=== PATIENT | female | born 1940 | race Caucasian/White ===

== ENCOUNTER → 2016-05-19 08:21 | Outpatient (CLI) | payer MEDICARE ==
[2014-03-29 09:49] VITALS: BMI 28.3
[~2016-05-19 08:21] MED LIST: B&O SUPP1 SUPP.REC; KLONOPIN1 MG PO; NEXIUM40 MG PO; ULTRAM50 MG PO
[2016-05-19 09:27] LABS: ALBUMIN 3.9 g/dL (3.4-5.0); BILIRUBIN - DIRECT 0.15 mg/dL (0.00-0.30); BILIRUBIN - INDIRECT 0.47 mg/dL (0.00-1.00); BILIRUBIN - TOTAL 0.62 mg/dL (0.2-1.3); PROTEIN - SERUM 7.4 g/dL (6.4-8.2)
== END | disposition home or self-care (01) ==
LOC: D.US 08:21
PROVIDERS: Internal Medicine Gastroenterology
DX: K76.0 Fatty (change of) liver, not elsewhere classified (principal)

== ENCOUNTER → 2016-11-18 08:53 | Outpatient (CLI) | payer MEDICARE ==
[2014-03-29 09:49] VITALS: BMI 28.3
[2016-11-18 10:30] LABS: ALBUMIN 3.6 g/dL (3.4-5.0); BILIRUBIN - INDIRECT 0.26 mg/dL (0.00-1.00); BILIRUBIN - TOTAL 0.29 mg/dL (0.2-1.3); PROTEIN - SERUM 7.3 g/dL (6.4-8.2)
[2016-11-18 10:31] LABS: BILIRUBIN - DIRECT 0.03 mg/dL (0.00-0.30)
== END | disposition home or self-care (01) ==
LOC: D.US 08:53
PROVIDERS: Internal Medicine Gastroenterology
DX: K76.0 Fatty (change of) liver, not elsewhere classified (principal)

== ENCOUNTER → 2017-05-19 08:02 | Outpatient (CLI) | payer MEDICARE ==
[2014-03-29 09:49] VITALS: BMI 28.3
[2017-05-19 09:24] LABS: ALBUMIN 3.9 g/dL (3.4-5.0); BILIRUBIN - DIRECT 0.14 mg/dL (0.00-0.30); BILIRUBIN - INDIRECT 0.56 mg/dL (0.00-1.00); BILIRUBIN - TOTAL 0.7 mg/dL (0.2-1.3)
== END | disposition home or self-care (01) ==
LOC: D.US 08:02
PROVIDERS: Internal Medicine Gastroenterology
DX: K76.0 Fatty (change of) liver, not elsewhere classified (principal)

== ENCOUNTER → 2017-11-19 08:26 | Outpatient (CLI) | payer MEDICARE ==
[2014-03-29 09:49] VITALS: BMI 28.3
[2017-11-19 09:01] LABS: ALBUMIN 3.5 g/dL (3.4-5.0); BILIRUBIN - DIRECT 0.14 mg/dL (0.00-0.30); BILIRUBIN - INDIRECT 0.5 mg/dL (0.00-1.00); BILIRUBIN - TOTAL 0.64 mg/dL (0.2-1.3); PROTEIN - SERUM 7.5 g/dL (6.4-8.2)
== END | disposition home or self-care (01) ==
LOC: D.LAB 08:26
PROVIDERS: Internal Medicine Gastroenterology
DX: K76.0 Fatty (change of) liver, not elsewhere classified (principal)

== ENCOUNTER → 2018-01-11 10:28 | Outpatient (CLI) | payer MEDICARE ==
[2014-03-29 09:49] VITALS: BMI 28.3
== END | disposition home or self-care (01) ==
LOC: D.MRI 10:28
DX: M54.5 Low back pain (principal)

== ENCOUNTER → 2018-02-17 07:14 | Outpatient (CLI) | payer MEDICARE ==
[2014-03-29 09:49] VITALS: BMI 28.3
== END | disposition home or self-care (01) ==
LOC: D.MRI 07:14
DX: M51.24 Other intervertebral disc displacement, thoracic region (principal)

== ENCOUNTER 2018-11-23 10:42 | Outpatient (CLI) | payer MEDICARE, MEDICAID ==
[~2018-11-23] VITALS: Ht 165.1 cm; Wt 74.5 kg
--- NOTE | ~2018-11-23 | HEMODYNAMI ---
PATIENT:BRENDA GOODEN MEDICAL RECORD: [id number] : 38 LOCATION:[facility] ADMISSION DATE: 11/23/18 Generatedon:11/23/201814:51 Patient name: BRENDA GOODEN Patient #: [id number] SSN: : 1940 Date of study: 11/23/2018 Page: Of Hemodynamic Procedure Report Patient Data Patient Demographics Procedure consent was obtained First Name: BRENDA Gender: Female Last Name: BERKLEY : 1940 Patient #: [id number] Age: 78 year(s) Race: Unknown Additional ID: [id number] Contact details [address]: [address] [place] [address] State: [place] City: [place] Zip code: [address] Admission Admission Data Admission Date: 11/23/2018 Admission Time: 10:42 Procedure Procedure Types Cath Procedure Diagnostic Procedure PPM/ICD PPM Dual Implant Sedation Charges Moderate Sedation up to 30 minutes Procedure Description Procedure Date Procedure Date: 11/23/2018 Procedure Start Time: 14:27 Procedure End Time: 14:46 Procedure Staff Name Function Andre Newman MD Performing Physician Perry Gregorio MD Assisting physician Amee Nava RT Monitor Elliot Davey RN Nurse Adriana Colón RT Scrub Procedure Data Cath Procedure Fluoroscopy Diagnostic fluoroscopy Total fluoroscopy Time: 1 time: 1 min min Diagnostic fluoroscopy Total fluoroscopy dose: dose: 14.08 mGy 14.08 mGy Contrast Material Contrast Material Type Amount (ml) Isovue 300 0 Estimated blood loss: 5 ml Procedure Complications No complications Procedure Medications Medication Administration Route Dosage 0.9% NaCl I.V. 100 ml/hr Oxygen etCO2 Nasal cannula 3 l/min Lidocaine 1% added to field 20 Vancomycin I.V.P.B 1 g Vancomycin Topical 1 g Irrigation Zofran I.V. 4 mg Versed I.V. 1 mg Fentanyl I.V. 100 mcg Versed I.V. 1 mg Hemodynamics Rest Heart Rate: 65 (bpm) Snapshots Pre Cath Intra NCS Post Cath Vital Signs Time Heart Resp SPO2 etCO2 NIBP (mmHg) Rhythm Pain Sedation Rate (ipm) (%) (mmHg) Status Level (bpm) 14:20:28 64 15 97 35.9 198/94(166) NSR 0 (11) 10(A) , No pain 14:24:54 65 11 98 35.9 196/93(149) NSR 0 (11) 10(A) , No pain 14:29:20 90 14 93 32.2 186/91(109) NSR 0 (11) 10(A) , No pain 14:34:50 64 16 93 25.4 133/69(102) NSR 0 (11) 9(A) , No pain 14:39:59 61 14 94 23.1 175/83(145) NSR 0 (11) 9(A) , No pain 14:44:21 63 17 95 26.9 176/92(141) NSR 0 (11) 10(A) , No pain Medications Time Medication Route Dose Verified Delivered Reason Notes Effectiv eness by by 14:25:03 0.9% NaCl I.V. 100 Elliot Elliot Per ml/hr Tamica Davey physician RN RN 14:25:13 Oxygen etCO2 3 Elliot Elliot for low 02 Nasal l/min Lorigan Desireeigan sats cannula RN RN 14:25:32 Lidocaine added 20ml Elliot Elliot for local 1% to vial Lorigan Lorigan anesthetic field x2 RN RN 14:25:53 Vancomycin I.V.P.B 1 g Elliot Elliot Per Tamica Davey physician RN RN 14:26:30 Vancomycin Topical 1 g Elliot Elliot used for Irrigation Lorigan Lorparviz shrimp pond laborer RN 14:26:43 Zofran I.V. 4 mg Elliot Elliot for nausea Tamica Davey RN RN 14:26:56 Versed I.V. 1 mg Elliot Elliot for Lorigan Lorigan sedation RN RN 14:28:25 Fentanyl I.V. 100 Elliot Elliot for mcg Lorigan Lorigan sedation RN RN 14:28:38 Versed I.V. 1 mg Elliot Elliot for Lorigan Lorigan sedation RN plasterer apprentice Log Time Note 13:59:46 Diagnostic Cath Status : Elective 14:00:43 Procedure Status PPM/ Gen Change/ Lead Revision/ Temp. 14:01:03 Amee Nava RT(R) sent for patient. Start room use. 14:01:04 Time tracking: Regular hours (M-F 7:00 - 5:00) 14:01:08 Plan of Care:Hemodynamics will remain stable., Cardiac rhythm will remain stable., Comfort level will be maintained., Respiratory function will remain adequate., Patient/ family verbilizes understanding of procedure., Procedure tolerated without complication., Recovers from procedure without complications.. 14:12:15 Patient received from Pre/Post Procedure Room to CCL 3 Alert and oriented. Tansferred to table in Supine position. 14:12:17 Signed procedure consent form obtained from patient. 14:12:18 Warm blankets applied, and enrrique hugger turned on for patient comfort. 14:12:19 Correct patient and procedure confirmed by team. 14:12:19 ECG and BP/O2 sat monitors applied to patient. 14:17:51 Medtronic risk control representative Asif Griggs present for procedure. 14:18:22 Vital chart was started 14:18:25 Baseline sample Acquired. 14:18:40 Full Disclosure recording started 14:18:45 H&P Date Dictated: 11/23/2018 Within 30 days and on chart., H&P Addendum completed by physician on day of procedure. (MUST COMPLETE FOR ALL OUTPATIENTS). 14:18:46 Pre-procedure instructions explained to patient. 14:18:46 Pre-op teaching completed and patient verbalized understanding. 14:18:48 Family in patients room. 14:18:50 Patient NPO since Midnight. 14:18:52 Is the patient allergic to Iodine/contrast media? No. 14:18:54 Was the patient premedicated? No 14:18:56 Is patient on blood thinner?No 14:19:36 Patient diabetic? No. 14:19:38 Previous problem with sedation/anesthesia? Yes nausea 14:19:41 Snore? Yes 14:19:53 Sleep apnea? No 14:19:54 Deviated septum? No 14:19:55 Opens mouth fully? Yes 14:19:56 Sticks out tongue? Yes 14:20:01 Airway obstruction? No ? 14:20:04 Dentures? No ? 14:20:13 Pre procedure: right dorsailis pedis pulse 2+ Normal; easily identifiable; not easily obliterated 14:20:14 Pre procedure: left dorsailis pedis pulse 2+ Normal; easily identifiable; not easily obliterated 14:20:20 IV patent on arrival in left forearm with 0.9% NaCl at [facility]. 14::23 Lab results completed and on chart. 14::30 Left chest area was prepped with chlora-prep and draped in sterile fashion 14:: Alarms reviewed by R. N. 14:: Sharps counted by scrub and verified by R.N. 14:25:03 0.9% NaCl 100 ml/hr I.V. was administered by Elliot Davey RN; Per physician; 14:25:13 Oxygen 3 l/min etCO2 Nasal cannula was administered by Elliot Davey RN; for low 02 sats; 14::32 Lidocaine 1% 20ml vial x2 added to field was administered by Elliot Davey RN; for local anesthetic; 14::53 Vancomycin 1 g I.V.P.B was administered by Elliot Davey RN; Per physician; 14::28 Physician arrived 14::29 --------ALL STOP TIME OUT------ 14::30 Vancomycin Irrigation 1 g Topical was administered by Elliot Davey RN; used for procedure; 14::30 Final Timeout: patient, procedure, and site verified with staff and physician. All members of the team are in agreement. 14::33 Left chest site verified by team. 14::36 Fire Safety Assessment: A--An alcohol-based skin anteseptic being used preoperatively., C--Open oxygen or nitrous oxide is being used., D--An ESU, laser, or fiber-optic light is being used. 14:26:40 Physical assessment completed. ASA score P 2 - A patient with mild systemic disease as per Andre Newman MD. 14:26:43 Zofran 4 mg I.V. was administered by Elliot Davey RN; for nausea; 14::47 Sedation plan: IV Moderate Sedation Medication:Versed, Fentanyl 14::56 Versed 1 mg I.V. was administered by Elliot Davey RN; for sedation; 14:27:13 Procedure started. 14:27:24 Pre sharps counted by scrub and verified by RN: Sutures: 7; Sponges: 5; Stick needles: 2; Skin needles: 2; Blade: 1; Cautery: 1 14:27:30 Grounding pad site Left thigh. 14:27:32 Grounding pad site free from injury. 14:27:36 Lidocaine 1% was administered to left subclavicular area by Perry Gregorio MD . 14:27:39 Incision made to left subclavicular area. 14:28:25 Fentanyl 100 mcg I.V. was administered by Elliot Davey RN; for sedation; 14::38 Versed 1 mg I.V. was administered by Elliot Davey RN; for sedation; 14:29:27 Generator pocket made/opened. 14:31:09 Left subclavian vein accessed with 7Fr Peel Away Sheath. 14:31:12 Left subclavian vein accessed with 7Fr Peel Away Sheath. 14:31:20 Ventricular lead inserted and advanced. 14:31:26 Atrial lead inserted and advanced. 14:33:43 Ventricular lead positioned. 14:34:08 Medtronic 4074-52 PPM Lead opened to sterile field. 14:35:05 Medtronic 4574-45 PPM Lead opened to sterile field. 14:36:09 Atrial lead positioned. 14:36:12 Peel-a-way sheath was split and removed. 14:36:17 Peel-a-way sheath was split and removed. 14:36:29 Ventricular lead attachment was completed with 2-0 ticron. 14:36:31 Atrial lead attachment was completed with 2-0 ticron. 14:37:17 PPM Dual was attached to lead(s) and inserted into pocket. 14:37:24 Generator was sutured in place with 2-0 ticron. 14:38:31 Device pocket was irrigated with Vancomycin. 14:38:45 Subcutaneous closure was completed with 3-0 vicryl plus. 14:39:56 Skin closure was completed with 5-0 monocryl. 14:42:[address] Generator [id number] opened to sterile field. 14:44:00 Lt Chest incision was dressed with Mepilex dressing. 14:44:52 Parameters-- Generator: Mode: DDDR. Lower Rate: 60bpm. Upper Rate: 130bpm. 14:45:25 Parameters--Atrial P/R Wave: 4.625mV. Current: ?mA; Threshold: 0.4V; Impedence: 532OHMS. 14:45:25 Parameters--Ventricular P/R Wave: 11.875mV. Current: ?mA; Threshold: 0.8V; Impedence: 1254OHMS. 14:45:32 Procedure ended.(Physican Out) 14:45:45 Fluoroscopy time 01.00 minutes. 14:45:49 Flurop Dose total: 14.08 14:45:49 Fluoroscopy dose: 14.08 mGy 14:45:55 Dose Area Product 194.30 mGy/cm. 14:45:59 Contrast amount:Isovue 300 0ml. 14:46:02 Sharps counted by scrub and verified by R.N. 14:46:04 Insertion/operative site no bleeding no hematoma. 14:46:10 Post procedure rhythm: paced 14:46:12 Estimated blood loss: 5 ml 14:46:14 Post procedure instruction explained to patient.Patient verbalizes understanding. 14:46:14 Patient needs reinforcement of post procedure teaching. 14:46:27 Procedure type changed to Cath procedure, Diagnostic procedure, PPM/ICD, PPM Dual Implant, Sedation Charges, Moderate Sedation up to 30 minutes 14:46:28 Procedure and supply charges have been captured, reviewed, submitted and are correct. 14:46:35 Procedure Complication : No complications 14:46:37 Vital chart was stopped 14:46:37 See physician's report for complete and final results. 14:46:43 Report given to [facility]. 14:46:46 Patient transfered to [facility] with Stretcher. 14:46:49 Procedure ended. 14:46:49 Full Disclosure recording stopped 14:46:53 End room use (Document Last) Device Usage Item Name Manufacture Quantity Catalog Hospital Part Current Minimal Lot# / Number Charge Number Stock Stock Serial# Code Medtronic Medtronic 1 4074-52 [id number] 4074-52 EXP PPM Lead 03-0 Medtronic Medtronic 1 4574-45 [id number] [id number] 4574-45 EXP PPM Lead 11-2 Medtronic Medtronic 1 [id number] [id number] PANCHO XT EXP DR 03-03 Generator [id number] Signature Audit [place] Stage Time Signature Unsigned Intra-Procedure 11/23/2018 Adriana Colnó 2:49:27 PM RT(R) Intra-Procedure 11/23/2018 Elliot 2:50:11 PM Tamica THORNTON Intra-Procedure 11/23/2018 Andre Gay 2:51:46 PM Jeevan PRICE [facility] [address] [place] [address]
[2018-11-23] MEDS ORDERED: LISINOPRIL20 MG PO (11:30)
[2018-11-23] MEDS ORDERED: VITAMIN D250000 UNIT PO (11:31)
[2018-11-23] MEDS ORDERED: CELEXA20 MG PO (11:31)
[2018-11-23] MEDS ORDERED: PEPCID40 MG PO (11:32)
[2018-11-23] MEDS ORDERED: PROBIOTIC1 EAC1 PO (11:33)
[2018-11-23] MEDS ORDERED: VITAMIN B-1250 MCG (11:33)
[2018-11-23] MEDS ORDERED: OMEGA-3100 MG PO (11:33)
[2018-11-23 11:48] VITALS: BP 174/79; BMI 27.1
--- NOTE | 2018-11-23 12:03 | NUR ---
DR. BARTLETT COVERING FOR DR. ROPER NOTIFIED AND REVIEWED PT'S BEHAVIOR AND ASSESSMENT RESULTS. PT IS A LOW RISK PER DR. BARTLETT. DR. BARTLETT STATED TO GIVE RESOURCES TO PT AT TIME OF DISCHARGE. NO FURTHER ORDERS AT THIS TIME. RESOURCES REVIEWED WITH PT AND SHE VERBALIZED UNDERSTANDING.
--- NOTE | 2018-11-23 12:07 | NUR ---
BEHAVIORAL HEALTH ASSESSMENT COMPLETED BY HILLARY GRANT, AND PT CLEARED FOLLOWING POSITIVE SUICIDE RISK SCREENING.
[2018-11-23 12:25] LABS: HEMATOCRIT 39.6 % (36.0-48.0); HEMOGLOBIN 13.6 g/dL (12-16); MCH 30.9 pg (26.0-34.0); MCHC 34.3 g/dL (31.0-37.0); MEAN PLATELET VOLUME 10.5 fL (7.4-10.4); RBC 4.4 10x6/uL (4.00-5.40); RDW 12.6 % (11.5-14.5); WBC 7.5 10x3/uL (4.8-10.8)
[2018-11-23 12:32] LABS: CALC OSMOLALITY 280 mosm/kg (275-300); CALCIUM 8.5 mg/dL (8.5-10.1); CARBON DIOXIDE 29.6 mmol/L (21.0-32.0); CHLORIDE - SERUM 105 mmol/L (98-107); CREATININE - SERUM 0.7 mg/dL (0.6-1.3); GLUCOSE 94 mg/dL (74-106); SODIUM 141 mmol/L (136-145); UREA NITROGEN 13 mg/dL (7-18); eGFR NON AFRICAN AMERICAN 85 mL/min (90-120)
[2018-11-23 13:18] LABS: APTT 30.5 SECONDS (22.8-39.4); INR 1.15 (0.85-1.17); PROTIME 14.2 SECONDS (11.6-15.0)
[2018-11-23 15:19] VITALS: BP 179/79; Ht 165.1 cm; Wt 74.5 kg
[2018-11-23 15:33] VITALS: BP 141/74
--- NOTE | 2018-11-23 15:34 | NUR ---
RECIVED FROM REQUIREMENTS MANAGER PER BED TO ROOM 2123, POST PACEMAKER PLACEMENT. ADMIT ASSESSMENT PER RN
--- NOTE | 2018-11-23 17:46 | NUR ---
WITHOUT CHANGES OR DISTRESS NOTED AT THIS TIME.
[2018-11-23 20:15] VITALS: BP 140/67
--- NOTE | 2018-11-23 21:53 | NUR ---
UP WITH ASSIST TO BR.
[2018-11-24 00:02] VITALS: BP 157/75
[2018-11-24 04:00] VITALS: BP 158/57
--- NOTE | 2018-11-24 04:30 | NUR ---
I have reviewed this patient and I concur with the Shift Assessment completed by the Licensed Practical Nurse today this shift.
--- NOTE | 2018-11-24 07:56 | NUR ---
ASSESSMENT DONE. DENIES NEEDS
[2018-11-24 08:45] VITALS: BP 159/67
--- NOTE | 2018-11-24 10:50 | NUR ---
I have reviewed this patient and I concur with the Shift Assessment completed by the Licensed Practical Nurse today this shift.
--- NOTE | 2018-11-24 11:15 | NUR ---
DC HOME PER PERSONAL CAR
--- NOTE | 2018-11-24 14:22 | OP ---
PATIENT NAME: CHAPIS ARREDONDO MEDICAL RECORD: [id number] :38 LOCATION:[facility] ADMISSION DATE: SURGEON: EDIN SOUSA MD DATE OF OPERATION: 11/23/2018 PROCEDURE: Lead portion of permanent pacemaker placement. INDICATION: Sick sinus syndrome with pauses. SURGEON: Perry Gregorio MD DESCRIPTION OF PROCEDURE: After left subclavian was cannulated via modified Seldinger technique via Dr. Gregorio, first under fluoroscopic guidance, I placed the RV lead in the RV apex without difficulty. R waves and thresholds were obtained, again under fluoroscopic guidance, I placed the right atrial lead into the right atrial appendage without difficulty. After adequate P waves and thresholds were obtained, the leads were attached to appropriate poles of the generator and pocket was closed via Dr. Gregorio. IMPRESSION: Successful lead portion of permanent pacemaker on Chapis Arredondo. ESTIMATED BLOOD LOSS: Minimal. DISPOSITION: To the floor, stable. TRANSINT:[id number] Voice Confirmation ID: [id number] DOCUMENT ID: [id number] EDIN SOUSA MD at 1422 CC: [id number] DICTATION DATE: 11/23/18 1442 TRAFFIC OPERATIONS ENGINEER: 11/23/18 2337 DEP CLI 11/24/18 [facility] [address] [place] [address]
--- NOTE | 2018-11-26 11:37 | OP ---
PATIENT NAME: BRENDA GOODEN MEDICAL RECORD: [id number] :39 LOCATION:D[facility] ADMISSION DATE: SURGEON: ANNALISE STYLES MD DATE OF OPERATION: 11/23/2018 PREOPERATIVE DIAGNOSES: 1. Sick sinus syndrome. 2. Hypertension. POSTOPERATIVE DIAGNOSES: 1. Sick sinus syndrome. 2. Hypertension. PROCEDURE: 1. Left subclavian vein dual lead pacemaker placement. 2. Fluoroscopic interpretation. SURGEON: Annalise Styles MD CO-SURGEON: Andre Rodriguez MD REPORT OF PROCEDURE: The patient's left chest was prepped and draped in sterile fashion. A 20 mL of 1% lidocaine with epinephrine was infused into the surrounding tissues. A transverse incision was made on the superior lateral chest and a subcutaneous pouch was made overlying the pectoral fascia. [place] were used to cannulate the left subclavian vein and guidewires were advanced with ease. Fluoro was used to note that the wires were in good position in the venous system. Dilator trocar devices were placed over the wires and the wires and dilators were removed. The leads were then advanced into the venous system. At this point, Dr. Rodriguez positioned the leads appropriately in the atrium and ventricle. Once they were noted to be in good position and functioning appropriately, then they were sutured into place with 0 Ti-Cron. The leads were affixed to the pacemaker, which was placed into the subcutaneous pouch and sutured to the pectoral fascia with single interrupted 0 Ti-Cron. The wound was then irrigated out with antibiotic solution. The subcutaneous tissues were reapproximated with interrupted 3-0 Vicryl and the skin was closed with running subcutaneous 5-0 Monocryl. COMPLICATIONS: None. CONDITION: Stable. ANESTHESIA: Local MAC. BLOOD LOSS: Minimal. TRANSINT:[id number] Voice Confirmation ID: [id number] DOCUMENT ID: [id number] OPERATIVE REPORT [id number] BRENDA GOODEN CHRISTIAN MD at 1137 CC: [id number] DICTATION DATE: 11/23/18 1447 MAINTENANCE TECHNICIAN: 11/23/18 2334 DEP CLI 11/24/18 [place] [address]
== END 2018-11-24 11:15 | disposition home or self-care (01) ==
LOC: D.CATH 10:42 → D.M2 14:46 → D.CATH 11-24 11:15
PROVIDERS: ATTEND Internal Medicine Interventional Cardiology
DX: I49.5 Sick sinus syndrome (principal)

== ENCOUNTER 2019-01-31 06:01 | Emergency (ER) | payer MEDICARE, MEDICAID ==
[~2019-01-31] VITALS: Ht 165.1 cm; Wt 75.0 kg
[~2019-01-31 06:01] MED LIST changes: +CELEXA20 MG PO; +LISINOPRIL20 MG PO; +OMEGA-3100 MG PO; +PEPCID40 MG PO; +PROBIOTIC1 EAC1 PO; +VITAMIN B-1250 MCG; +VITAMIN D250000 UNIT PO
[2019-01-31 06:04] VITALS: Ht 165.1 cm; Wt 75.0 kg
[2019-01-31] MEDS ORDERED: NORVASC5 MG PO (06:11)
[2019-01-31 07:17] LABS: ALBUMIN 3.4 g/dL (3.4-5.0); ANION GAP 10.5 mmol/L (8-16); BASOPHILS 0.9 % (0-2); BILIRUBIN - TOTAL 0.3 mg/dL (0.2-1.3); CALCIUM 8.9 mg/dL (8.5-10.1); CARBON DIOXIDE 28.2 mmol/L (21.0-32.0); CREATININE - SERUM 0.8 mg/dL (0.6-1.3); EOSINOPHILS 1.6 % (0-7); HEMATOCRIT 43.4 % (36.0-48.0); HEMOGLOBIN 14.2 g/dL (12-16); IMMATURE GRANULOCYTES 0.3 % (0-5); LYMPHOCYTES 33.4 % (15-50); MCH 30.7 pg (26.0-34.0); MCHC 32.7 g/dL (31.0-37.0); MCV 93.9 fL (80.0-100.0); MEAN PLATELET VOLUME 10.6 fL (7.4-10.4); MONOCYTES 7.9 % (2-11); NEUTROPHILS 55.9 % (40-80); PLATELET COUNT 285 10x3/uL (130-400); POTASSIUM - SERUM 3.7 mmol/L (3.5-5.1); PROTEIN - SERUM 7.5 g/dL (6.4-8.2); RBC 4.62 10x6/uL (4.00-5.40); RDW 12.9 % (11.5-14.5); WBC 6.4 10x3/uL (4.8-10.8)
[2019-01-31] MEDS ORDERED: MECLIZINE HCL25 MG PO (07:31)
[2019-01-31 07:34] LABS: APPEARANCE CLEAR (CLEAR); COLOR YELLOW (YELLOW)
[2019-01-31 07:35] LABS: BACTERIA MANY /hpf (NEGATIVE); BILIRUBIN NEGATIVE (NEGATIVE); EPITHELIAL CELLS 0-5 /hpf (0-5); GLUCOSE NEGATIVE (NEGATIVE); KETONE NEGATIVE (NEGATIVE); MUCUS <1+ /lpf (NONE SEEN); NITRITE POSITIVE (NEGATIVE); PROTEIN NEGATIVE (NEGATIVE); RED CELLS - URINE OCC /hpf (0-5); UROBILINOGEN NORMAL (NORMAL); WHITE CELLS - URINE 0-5 /hpf (NEGATIVE)
[2019-01-31 08:08] VITALS: BP 134/62
== END 2019-01-31 08:07 | disposition home or self-care (01) ==
LOC: D.ER 06:01
PROVIDERS: Emergency Medicine
DX: H81.10 Benign paroxysmal vertigo, unspecified ear (principal); I20.9 Angina pectoris, unspecified

== ENCOUNTER → 2019-06-02 11:28 | Outpatient (CLI) | payer MEDICARE, MEDICAID ==
[2019-01-31 06:04] VITALS: BMI 27.5
[~2019-06-02 11:28] MED LIST changes: +MECLIZINE HCL25 MG PO; +NORVASC5 MG PO
--- NOTE | 2019-06-06 14:03 | EC ---
PATIENT:BRENDA GOODEN DATE OF SERVICE: 06/02/19 SEX: F MEDICAL RECORD: [id number] DATE OF : 38 LOCATION:[facility] AGE OF PATIENT: 79 ADMISSION DATE: 06/02/19 REFERRING PHYSICIAN: INTERPRETING PHYSICIAN: EDIN SOUSA MD ECHOCARDIOGRAM REPORT ECHO CHARGES 4 ECHO COMPLETE Date: 06/02/19 CLINICAL DIAGNOSIS: NEUROPATHIC PAIN H/O PACEMAKER PLACMENT ECHOCARDIOGRAPHIC MEASUREMENTS (adult normal given) AC root (d.<3.7cm) 2.3 cm LV Septum d (<1.2 cm> 1.2 cm Valve Excursion 1.3 cm LV Septum (systole) 1.8 cm Left Atria (s.<4.0cm> 3.9 cm LVPW d(<1.2cm) 0.9 cm RV (d.<2.3cm) 2.3 cm LVPW (sytole) 1.2 cm LV diastole(<5.6CM) 6.2 cm MV E-F(>70mm/sec) cm LV systole 5.3 cm LVOT Diameter 1.9 cm MV exc.(>10mm) cm Est.ejection fraction (50-75%) % DOPPLER: LVIT cm/sec A 86.0 cm/sec E 46.0 cm/sec LA cm/sec RVSP 19.1 mmHg LVOT 94.0 cm/sec AOP1/2T m/s Asc. Ao 149 cm/sec RVOT 78.0 cm/sec RA cm/sec PA 97.0 cm/sec AV Gradient Peak 8.9 mmHg AV Mean 4.1 mmHg AV Area 1.8 cm MV Gradient Peak 4.0 mmHg MV Mean 1.3 mmHg MV Area cm COMMENTS: OP - HC Picker: 1 ALICE LORE Pleasure Craft Sailor: 3 Dr. Rodriguez TAPE# PACS Pericardial Effusion N DATE OF SERVICE: Adequate 2D, color flow imaging, spectral Doppler, and M-Mode No LVH. LV internal dimensions are dilated at 6.2 cm. LV is globally hypokinetic with reduced EF, estimated EF 30% to 35%. Aortic valve is sclerosed without evidence of stenosis by Doppler interrogation. Left atrium is normal at 3.9 cm. Mitral valve shows no prolapse. Moderate MR. Right-sided chambers are grossly normal. Moderate TR. ECHOCARDIOGRAM REPORT [id number] ROUSE TRANSINT:[id number] Voice Confirmation ID: [id number] DOCUMENT ID: [id number] EDIN SOUSA MD at 1403 CC: [id number] DICTATION DATE: 06/03/19 1022 REGISTRATION SCHEDULING SPECIALIST: 06/03/19 1726 DEP CLI 06/02/19 [place] [id number] [place] [id number]
== END | disposition home or self-care (01) ==
LOC: D.HCCECHO 11:28
PROVIDERS: ATTEND Internal Medicine Interventional Cardiology
DX: I10 Essential (primary) hypertension (principal)

== ENCOUNTER → 2019-12-15 13:22 | Outpatient (CLI) | payer MEDICARE, MEDICAID ==
[2019-01-31 06:04] VITALS: BMI 27.5
--- NOTE | ~2019-12-15 | EC ---
PATIENT:BRENDA GOODEN DATE OF SERVICE: 12/15/19 SEX: F MEDICAL RECORD: [id number] DATE OF : 38 [facility] AGE OF PATIENT: 79 ADMISSION DATE: 12/15/19 REFERRING PHYSICIAN: INTERPRETING PHYSICIAN: EDIN SOUSA MD ECHOCARDIOGRAM REPORT ECHO CHARGES 4 ECHO COMPLETE Date: 12/15/19 CLINICAL DIAGNOSIS: HX OF CARDIOMYOPATHY/ASSESS EF HX OF PACEMAKER ECHOCARDIOGRAPHIC MEASUREMENTS (adult normal given) AC root (d.<3.7cm) 3.3 cm LV Septum d (<1.2 cm> 1.4 cm Valve Excursion 1.8 cm LV Septum (systole) 1.5 cm Left Atria (s.<4.0cm> 4.1 cm LVPW d(<1.2cm) 1.3 cm RV (d.<2.3cm) 2.7 cm LVPW (sytole) 1.6 cm LV diastole(<5.6CM) 6.0 cm MV E-F(>70mm/sec) cm LV systole 4.7 cm LVOT Diameter 2.0 cm MV exc.(>10mm) 1.4 cm Est.ejection fraction (50-75%) % DOPPLER: LVIT cm/sec A 72.0 cm/sec E 41.0 cm/sec LA cm/sec RVSP 35 mmHg LVOT 94 cm/sec AOP1/2T m/s Asc. Ao 149 cm/sec RVOT 79 cm/sec RA cm/sec PA 125 cm/sec AV Gradient Peak 8.85 mmHg AV Mean 5.19 mmHg AV Area 1.9 cm MV Gradient Peak 3.71 mmHg MV Mean 1.06 mmHg MV Area cm COMMENTS: River Pilot: 2 LAYLA MIRAMONTES Corn Husker: 3 Dr. Rodriguez TAPE# PACS Pericardial Effusion N DATE OF SERVICE: Adequate 2D, color flow imaging, spectral Doppler, and M-Mode. LVH is present. LV internal dimensions are dilated. LV is mildly globally hypokinetic with reduced EF, estimated EF 30% to 35%. Aortic valve is sclerosed without stenosis by Doppler interrogation. Mild AI by color flow imaging. Left atrium is mildly dilated upper limits of normal at 4.1 cm. Mitral valve shows no prolapse. Mild MR. Right-sided chambers are grossly normal. Mild TR. ECHOCARDIOGRAM REPORT [id number] BRENDA GOODEN TRANSINT:[id number] Voice Confirmation ID: [id number] DOCUMENT ID: [id number] EDIN SOUSA MD CC: [id number] DICTATION DATE: 12/19/19807 SKI BASE TRIMMER: 12/19/19 1142 DEP CLI 12/15/19 [place] [id number] [place] [id number]
== END | disposition home or self-care (01) ==
LOC: D.HCCECHO 13:22
PROVIDERS: ATTEND Internal Medicine Interventional Cardiology
DX: I42.9 Cardiomyopathy, unspecified (principal)

== ENCOUNTER 2020-06-27 14:30 | Outpatient (CLI) | payer MEDICARE, MEDICAID ==
[2019-01-31 06:04] VITALS: BMI 27.5
== END 2020-06-27 23:59 | disposition home or self-care (01) ==
LOC: D.MAMMO 14:30
PROVIDERS: ATTEND Clinical Nurse Specialist Adult Health
DX: Z12.31 Encounter for screening mammogram for malignant neoplasm of breast (principal)